=== PATIENT | female | born 1955 | race African-American/Black ===

== ENCOUNTER 2017-04-09 23:46 | Emergency (ER) | payer MEDICAID ==
[~2017-04-09] VITALS: Ht 167.6 cm; Wt 81.0 kg
[~2017-04-09 23:46] MED LIST: NAPR-679 PO
[2017-04-10] MEDS ORDERED: HYDROCODONE/ACETAMINOPHEN 5/325MG TABLET PO ONE (02:45)
[2017-04-10 04:00] VITALS: BP 118/72
[2017-04-10] MEDS ORDERED: KETOROLAC 30MG/ML VIAL IV ONE (04:00)
[2017-04-10] MEDS ORDERED: KETOROLAC 30MG/ML VIAL ONE (04:03)
== END 2017-04-10 06:34 | disposition home or self-care (01) ==
LOC: ER 23:46
DX: S83.91XA Sprain of unspecified site of right knee, initial encounter (principal); S13.4XXA Sprain of ligaments of cervical spine, initial encounter; I10 Essential (primary) hypertension; E78.00 Pure hypercholesterolemia, unspecified; R53.1 Weakness; R51 Headache; V49.9XXA Car occupant (driver) (passenger) injured in unspecified traffic accident, initial encounter; Y93.89 Activity, other specified; Y99.8 Other external cause status; Y92.89 Other specified places as the place of occurrence of the external cause
CPT/HCPCS: 70450; 72040; 73564; 96374; 99284; J1885